=== PATIENT | female | born 1985 | race Caucasian/White ===

== ENCOUNTER → 2017-11-17 | Outpatient (REF) | payer OTHER, MEDICAID ==
[2017-11-17 18:30] LABS: BASO # 0.1 10^3/uL (0.0-0.2); BASO % 1.1 % (0.0-1.0); EOS # 0.1 10^3/uL (0.0-0.50); EOS % 3.2 % (0.0-3.0); HEMATOCRIT 40.6 % (36.0-47.0); HEMOGLOBIN 12.8 g/dl (12.0-15.5); IMMATURE GRANULOCYTE % 0.2 % (0-3.0); LYMPH # 1.4 10^3/uL (1.5-4.5); LYMPH % 31.3 % (24.0-44.0); MEAN CORPUSCULAR HEMOGLOBIN 27.8 pg (27.0-33.0); MEAN CORPUSCULAR HGB CONC 31.5 g/dl (32.0-36.5); MEAN CORPUSCULAR VOLUME 88.1 fl (80.0-96.0); MONO # 0.4 10^3/uL (0.0-0.8); NEUTROPHILS # 2.5 10^3/uL (1.8-7.7); NEUTROPHILS % 55.2 % (36.0-66.0); PLATELET COUNT, AUTOMATED 285 10^3/uL (150-450); RED BLOOD COUNT 4.61 10^6/uL (4.00-5.40); RED CELL DISTRIBUTION WIDTH 14.4 % (11.5-14.5); WHITE BLOOD COUNT 4.4 10^3/uL (4.0-10.0)
[2017-11-17 19:13] LABS: ALBUMIN 3.8 GM/DL (3.2-5.2); ALBUMIN/GLOBULIN RATIO 1.12 (1.00-1.93); ALKALINE PHOSPHATASE 50 U/L (45-117); ALT/SGPT 17 U/L (12-78); ANION GAP 7 MEQ/L (8-16); AST/SGOT 10 U/L (7-37); BILIRUBIN,TOTAL 0.4 MG/DL (0.2-1.0); BLOOD UREA NITROGEN 10 MG/DL (7-18); C REACTIVE PROTEIN QUANTITATIV < 0.30 MG/DL (0.00-0.30); CARBON DIOXIDE LEVEL 27 MEQ/L (21-32); CHLORIDE LEVEL 106 MEQ/L (98-107); CREATININE FOR GFR 0.78 MG/DL (0.55-1.30); GLOMERULAR FILTRATION RATE > 60.0 (>60); GLUCOSE, FASTING 110 MG/DL (70-100); HCG, SERUM QUANTITATIVE 60 MIU/ML; POTASSIUM SERUM 4.4 MEQ/L (3.5-5.1); RHEUMATOID FACTOR QUANT < 10.0 IU/ML (<15.0); SODIUM LEVEL 140 MEQ/L (136-145); TOTAL PROTEIN 7.2 GM/DL (6.4-8.2)
[2017-11-17 19:46] LABS: ERYTHROCYTE SEDIMENTATION RATE 15 mm/hr (0-20)
== END ==
LOC: M LAB REF 17:35
DX: M54.42 Lumbago with sciatica, left side (principal); N91.1 Secondary amenorrhea

== ENCOUNTER → 2018-08-23 | Outpatient (REF) | payer OTHER | LOC: M LAB LCGH 11:56 | PROVIDERS: ATTEND Obstetrics & Gynecology | DX: Z34.90 Encounter for supervision of normal pregnancy, unspecified, unspecified trimester (principal); Z36.9 Encounter for antenatal screening, unspecified; Z3A.00 Weeks of gestation of pregnancy not specified ==

== ENCOUNTER → 2019-02-19 | Outpatient (REF) | LOC: M LAB LCGH 15:05 | PROVIDERS: ATTEND Obstetrics & Gynecology | DX: Z37.0 Single live birth (principal) ==

== ENCOUNTER 2024-11-13 10:42 | Day surgery (SDC) | payer OTHER ==
[~2024-11-13] VITALS: Ht 162.6 cm; Wt 97.8 kg
[~2024-11-13 10:42] MED LIST: ACET-907 PO; ACETAMINOPHEN 1000MG/100ML IV BAG As Ordered ONE; BUPR8SUB PO; GABA-1635 PO; GLYCOPYRROLATE INJ 0.2 MG/ML 2 ML VIAL As Ordered ONE; IBUP600T42 PO; KETOROLAC 30 MG/ML 1 ML VIAL As Ordered ONE; LIDOCAINE 2% 100 MG/5 ML SDV (FOR ANES.) As Ordered ONE; MIDAZOLAM INJ 2 MG/2 ML VIAL As Ordered ONE; ONDANSETRON 4MG 2ML VIAL As Ordered ONE; PHEN15CA6 PO; ROCURONIUM BROMIDE 50MG/5ML VIAL As Ordered ONE; SERT200C PO; SUGAMMADEX SODIUM 500 MG/5 ML VIAL As Ordered ONE; TOPI-21 PO; dexAMETHasone 4 MG/ML 1 ML VIAL As Ordered ONE
[2024-11-13] MEDS ORDERED: LR 1,000 ML IV SCH ×2 (11:05→15:25)
[2024-11-13] MEDS: LIDOCAINE 1% SDV 30 ML VIAL As Ordered ONE (11:51)
[2024-11-13] MEDS: CelecoXIB 400 MG CAP PO ONE (12:13)
[2024-11-13] MEDS: SCOPOLAMINE 1MG TRANSDERMAL PATCH TOP ONE (12:13)
[2024-11-13] MEDS ORDERED: KETAMINE HCL 200 MG/20 ML VIAL As Ordered ONE (12:24)
[2024-11-13] MEDS: ceFAZolin SOD 2 GM IV ONCE IV ONE (12:27)
[2024-11-13] MEDS: HEPARIN SOD 5000 UNITS/ML 1 ML VIAL/SYRINGE SQ ONE (13:00)
[2024-11-13] MEDS ORDERED: ONDANSETRON 4MG 2ML VIAL IV PRN (15:25)
[2024-11-13] MEDS ORDERED: HYDROMORPHONE HCL 0.5 MG/0.5 ML SYRINGE IV PRN (15:25)
[2024-11-13 16:34] VITALS: BP 131/78; TEMP 97.5; O2SAT 96
== END 2024-11-13 17:05 | disposition home or self-care (01) ==
LOC: M SDC 10:42
PROVIDERS: ATTEND Surgery
DX: K43.2 Incisional hernia without obstruction or gangrene (principal); M62.08 Separation of muscle (nontraumatic), other site; K66.0 Peritoneal adhesions (postprocedural) (postinfection); Z79.899 Other long term (current) drug therapy; Z98.51 Tubal ligation status; F17.210 Nicotine dependence, cigarettes, uncomplicated; Z90.49 Acquired absence of other specified parts of digestive tract; Z88.8 Allergy status to other drugs, medicaments and biological substances; Z88.0 Allergy status to penicillin; Z88.2 Allergy status to sulfonamides; Z91.040 Latex allergy status
CPT/HCPCS: 49593; 93005; C1781; J0131; J0665; J0666; J0690; J1100; J1596; J1885; J2250; J2405; J2765; J3010; S2900